=== PATIENT | male | born 1950 | race Caucasian/White ===

== ENCOUNTER 2016-08-02 23:29 | Outpatient (CLI) | END 2016-08-02 23:30 | disposition home or self-care (01) | LOC: AMBL 23:29 | PROVIDERS: ATTEND Family Medicine | DX: R06.02 Shortness of breath (principal); R10.13 Epigastric pain; R05 Cough; E78.5 Hyperlipidemia, unspecified; I48.91 Unspecified atrial fibrillation; Z85.118 Personal history of other malignant neoplasm of bronchus and lung; Z87.01 Personal history of pneumonia (recurrent) ==

== ENCOUNTER 2016-08-04 08:06 | Outpatient (CLI) | END 2016-08-04 08:23 | LOC: AMBL 08:06 | PROVIDERS: ATTEND Internal Medicine | DX: R06.02 Shortness of breath (principal); C34.90 Malignant neoplasm of unspecified part of unspecified bronchus or lung; I48.91 Unspecified atrial fibrillation; J18.9 Pneumonia, unspecified organism ==